=== PATIENT | female | born 1985 | race Caucasian/White ===

== ENCOUNTER 2016-11-27 11:21 | Emergency (ER) | payer OTHER ==
[2016-11-27] MEDS ORDERED: AMPICILLIN/SULBACTAM 3 GM in SODIUM CHLORIDE 0.9% MINIBAG 100 ML IV STA (12:01)
--- NOTE | 2016-11-27 12:53 | ED Physician Documentation ---
PD HPI LOWER EXT INJURY - Stated complaint Stated Complaint: LEFT FOOT SWOLLEN - Chief complaint Chief Complaint: Ext Problem - History obtained from History obtained from: Patient - History of Present Illness PD HPI LOW EXT INJURY LOCATION: Left, Foot Type of injury: Puncture wound (Dog bite) Where injury occurred: Home Timing - onset: How many days ago (3) Associated symptoms: Swelling, Discolored Recently seen: Clinic (Seen at the clinic on the [facility] yesterday, and was started on trimethoprim sulfamethoxazole, of which she has taken 2 doses.) - Treatment prior to arrival Treatment prior to arrival: TMP/SMX - Additional information Additional information: The patient is a 31-year-old female whose left foot was scratched by a claw of her pet dog 3 days ago. Redness and swelling of the foot began the next day. She was seen in the clinic at the [facility] yesterday and was started on trimethoprim sulfamethoxazole, of which she has taken 2 doses. She presents to the emergency department today because of increased redness and pain in her foot. She is not diabetic. She denies fever. Tetanus immunization status is up -to-date. Review of Systems Constitutional: denies: Fever Nose: denies: Congestion Throat: denies: Sore throat Respiratory: denies: Dyspnea GI: denies: Abdominal Pain, Nausea, Vomiting Skin: reports: Bite / sting (Puncture wound in her left foot from a dog claw.) Musculoskeletal: reports: Extremity pain (left foot) Neurologic: denies: Focal weakness, Numbness PD PAST MEDICAL HISTORY - Past Medical History Respiratory: None Neuro: Headache/migraine Endocrine/Autoimmune: None Psych: Depression, Anxiety Other Past Medical History: syncope - Past Surgical History Past Surgical History: No - Present Medications Home Medications: Ambulatory Orders Medication Instructions Recorded Confirmed Propranolol [Inderal] 20 mg PO BID 08/14/14 11/27/16 Amox/Clav 875/125 [Augmentin] 1 each PO Q12H #14 tablet 11/27/16 Mupirocin 22 gm TP DAILY 11/27/16 11/27/16 Sertraline [Zoloft] 25 mg PO DAILY 11/27/16 11/27/16 Sulfamethoxazole/Trimethoprim 1 each PO BID 11/27/16 11/27/16 [Sulfamethoxazole-Tmp Ds Tablet] - Allergies Allergies/Adverse Reactions: Allergies Allergy/AdvReac Type Severity Reaction Status Date / Time No Known Drug Allergies Allergy Verified 11/27/16 11:30 - Social History Does the pt smoke?: No Smoking Status: Never smoker Does the pt drink ETOH?: No Does the pt have substance abuse?: No - Immunizations Immunizations are current?: Yes - POLST Patient has POLST: No PD ED PE NORMAL - Vitals Vital signs reviewed: Yes (normal) - General General: Alert and oriented X 3, Well developed/nourished - Cardiac Cardiac: RRR - Respiratory Respiratory: No respiratory distress - Derm Derm: No rash - Extremities Extremities: No calf tenderness / cord, Other (A puncture wound site is noted on the dorsum of the left foot. There is surrounding erythema extending from the base of the toes proximally to the ankle. The erythema goes outside the borders that were demarcated in the clinic yesterday. There is associated tenderness to palpation, and very slight warmth compared to the surrounding tissue. There is no lymphangitic streaking. Distal neurovascular is intact.) - Neuro Neuro: Alert and oriented X 3, No motor deficit, No sensory deficit Results - Vitals Vitals: Vital Signs - 24 hr 11/27/16 11/27/16 11:26 12:58 Temperature 36.8 C Heart Rate 79 101 H Respiratory 16 19 Rate Blood Pressure 118/73 106/58 L O2 Saturation 100 100 Oxygen O2 Source Room air PD MEDICAL DECISION MAKING - ED course Complexity details: re-evaluated patient, considered differential, d/w patient, d/w family ED course: The patient's presentation is significant for cellulitis of her left foot caused by a puncture wound from a dog's claw. There is no evidence of abscess or tendinitis. Treatment in the emergency department included administration of Unasyn 3 g IV. She is being discharged with prescription for Augmentin, and is advised to discontinue trimethoprim sulfamethoxazole. I discussed with her and her the likely course of illness, antibiotic treatment and outpatient follow-up, as well as potentially worrisome signs or symptoms that should prompt reevaluation in the emergency department. Departure - Departure Disposition: 01 Home, Self Care Clinical Impression: Cellulitis of left foot, Puncture wound Condition: Stable Instructions: ED Infec Skin Cellulitis, ED Wound Puncture Foot Follow-Up: ROCHELLE Lieberman [Provider Group] Prescriptions: Amox/Clav 875/125 [Augmentin] 1 each PO Q12H #14 tablet Comments: Keep your left foot elevated as much the time as possible. Take Augmentin twice daily as prescribed. Eat probiotic yogurt while on antibiotic therapy. You can use ibuprofen, up to 600 mg 3 times daily if needed for pain. Follow up with your primary physician on Wednesday as scheduled. Return to the emergency department if you develop increasing redness, swelling, red streaking, or otherwise worsening symptoms. Discharge Date/Time: 11/27/16 13:00
[2016-11-27 12:59] VITALS: BP 106/58
== END 2016-11-27 13:00 | disposition home or self-care (01) ==
LOC: ED 11:21
DX: S91.332A Puncture wound without foreign body, left foot, initial encounter (principal); L03.116 Cellulitis of left lower limb; W54.1XXA Struck by dog, initial encounter; Y92.009 Unspecified place in unspecified non-institutional (private) residence as the place of occurrence of the external cause
CPT/HCPCS: 96365; 99283

== ENCOUNTER 2016-12-14 13:59 | Outpatient (CLI) | payer OTHER | END 2016-12-14 14:00 | disposition home or self-care (01) | LOC: DI 13:59 | DX: R55 Syncope and collapse (principal); I07.1 Rheumatic tricuspid insufficiency | CPT/HCPCS: 93306 ==

== ENCOUNTER 2016-12-17 14:04 | Outpatient (CLI) | payer OTHER | END 2016-12-17 14:05 | disposition home or self-care (01) | LOC: DI 14:04 | DX: R55 Syncope and collapse (principal) | CPT/HCPCS: 93306 ==